=== PATIENT | male | born 1985 | race Two or more races ===

== ENCOUNTER 2022-10-17 20:28 | Emergency (ER) | payer SELFPAY ==
[~2022-10-17] VITALS: Ht 188 cm; Wt 90.7 kg
--- NOTE | 2022-10-17 21:00 | NUR ---
BIB SELF C/O CHEST PAIN STARTED 2 DAYS AGO, NON- RADIATING, RATED 5/10. PAIN WHEN BREATHING. PT ATTACHED TO THE MONITOR, [id number].
--- NOTE | 2022-10-17 21:05 | NUR ---
EMT AT BEDSIDE FOR EKG.
--- NOTE | 2022-10-17 21:17 | NUR ---
ESTABLISHED IV LINE AT R AC, 18G. BLOOD DRAWN AND HANDED IT TO THE PHLEB AT BEDSIDE.
[2022-10-17 21:28] LABS: BASOPHILS # (AUTO) 0.1 K/uL (0.0-0.2); BASOPHILS % (AUTO) 0.7 % (0.0-2.0); EOSINOPHILS % (AUTO) 0.9 % (0.0-6.0); HEMATOCRIT 44 % (39-51); HEMOGLOBIN 15.4 g/dL (13.5-17.5); LYMPHOCYTES # (AUTO) 2.2 K/uL (0.8-4.8); LYMPHOCYTES % (AUTO) 27.1 % (20.0-44.0); MEAN CORPUSCULAR HGB CONC 35 g/dl (31.0-36.0); MEAN CORPUSCULAR VOLUME 88 fL (80-96); MONOCYTES # (AUTO) 0.5 K/uL (0.1-1.30); MONOCYTES % (AUTO) 5.8 % (2.0-12.0); NEUTROPHILS # (AUTO) 5.3 K/uL (1.8-8.9); NEUTROPHILS % (AUTO) 65.5 % (43.0-81.0); PLATELET COUNT (AUTO) 260 K/uL (150-450); RED BLOOD CELL COUNT(AUTO) 4.98 MIL/uL (4.5-6.0)
[2022-10-17 21:48] LABS: CALCIUM, SERUM 9.6 mg/dL (8.5-10.1); CARBON DIOXIDE 29 mmol/L (21-32); CHLORIDE 102 mmol/L (98-107); CREATININE 1.6 mg/dL (0.6-1.3); GLUCOSE 109 mg/dL (74-106); POTASSIUM 3.6 mmol/L (3.5-5.1); SODIUM SERUM 141 mmol/L (136-145); UREA NITROGEN, BLOOD 16 mg/dL (7-18)
--- NOTE | 2022-10-17 22:13 | NUR ---
CALLED LAB FOR REPEAT TROP
--- NOTE | 2022-10-17 22:35 | NUR ---
DR. ULLOA AT BEDSIDE WITH ONLINE VIDEO CALL ONLINE COMMUNICATIONS MANAGER.
--- NOTE | 2022-10-17 23:29 | NUR ---
Patient does not wish to proceed with medical care recommended by Dr. Lerner). Patient given information related to possible complications, up to and including , which could occur as a result of leaving the hospital at this time. Patient verbalizes understanding of risks involved due to leaving against medical advice. Patient has signed AMA form.
[2022-10-17 23:30] VITALS: BP 145/83; TEMP 98.3; O2SAT 99
== END 2022-10-17 23:31 | disposition left against medical advice (07) ==
LOC: ER 20:32
DX: R07.89 Other chest pain (principal)
CPT/HCPCS: 36415; 71045-TC; 80048-TC; 84484-TC; 85025-TC